=== PATIENT | male | born 1985 | race Caucasian/White ===

== ENCOUNTER 2016-10-09 09:02 | Emergency (ER) | payer MEDICAID ==
[2016-10-09] MEDS ORDERED: LIDOCAINE 2% MDV 20 ML VIAL As Ordered ONE (09:37)
--- NOTE | 2016-10-09 09:50 | REP ---
Right finger series: Five views. History: Trauma to the middle finger. Findings: Five views of the fingers of the right hand are somewhat less than optimally positioned. There is soft tissue irregularity at the proximal phalanx of the long finger. There may be some dressing artifact. This suggests a soft tissue injury. No definite opaque foreign body is seen. No fracture is noted. Signed by Jose Ariza MD 10/09/2016 01:41 P
--- NOTE | 2016-10-09 10:25 | EDDOCDS ---
Nurse's Notes [facility] Name: Tayo Montano Age: 30 yrs Sex: Male : 1985 Arrival Date: 10/09/2016 Time: 09:02 Bed I1 / M1 Private MD: Volodymyr Price WAT Diagnosis: Laceration without foreign body of right middle finger without damage to nail-flexor tendon exposed without visible injury Presentation: 10/09 09:09 Presenting complaint: EMS states: Pt tripped and fell with laceration to right 3rd kc3 finger. Bulky dressing intact placed aircraft captain. No head injury reported. Pt acting appropiately per family member. Adult Sepsis Screening: The patient does not have new or worsening altered mentation. Patient's respiratory rate is less than 22. Systolic blood pressure is greater than 100. Patient has a qSOFA score of 0- Negative Sepsis Screen. Suicide/Homicide risk assessment- Unable to assess, due to patient's chronic mental disability. Status: Patient is not a telephone service representative or dependent. Transition of care: patient was received from [facility]. 09:09 Acuity: TERI Level 4 kc3 09:09 Method Of Arrival: Ambulance kc3 Triage Assessment: 09:18 General: Appears in no apparent distress, comfortable, Behavior is pleasant. Pain: kc3 Unable to use pain scale. Does not appear to understand pain scale. HIV screening NA for this visit Offered previously. Neurological: Level of Consciousness is awake, alert. Respiratory: Respiratory effort is even, unlabored. Derm: Skin is intact, is healthy with good turgor, laceration to right middle finger approx. 1 inch. Musculoskeletal: Circulation, motion, and sensation intact. Historical: - Allergies: Benadryl; - Home Meds: 1. Abilify 5 mg Oral tab 1 tab once daily 2. Risperdal 2 mg Oral tab three times a day 3. loratadine 10 mg Oral TbDL 1 tab once daily 4. Depakote 500 mg Oral TbEC 1 tab 2 times per day 5. Debrox 6.5 % Otic drop as needed 6. Lexapro 20 mg Oral tab 1 tab once daily 7. clonazepam 0.5 mg Oral tab daily 8. Diflucan 200 mg Oral tab weekly for acute fungal inections PRN 9. multivitamin Oral tab 10. Colace 100 mg oral cap 1 cap 2 times per day - PMHx: Autism; Cerebral Palsy; CVA; Schizo-Affective Disorder; - PSHx: eye surgery; - Immunization history:: Last tetanus immunization: April 06, 2013. - Family history: Not pertinent. - Social history: Patient is speech impaired. Smoking status: Patient states was never smoker of tobacco. - : The pt / caregiver states he / she is not on anticoagulants. Home medication list is obtained from family members. - Exposure Risk Screening:: None identified. Screenin:22 Screening information is obtained from family members. Fall risk: At risk due to kc3 apparent cognitive impairment, The following interventions are performed due to a positive Fall Risk Screen: Fall Risk is added to Special Handling on the patient Summary Screen. A Fall Risk Bracelet was applied to the patient. Side Rails are placed in the up position. A Call Daley is given with instruction to call for help when getting out of bed. Fall Alert bracelet is placed on the patient. Assistance ADL's: Requires assistance with meal preparation, this assistance is provided by family members, bathing, assistance is provided by family members, dressing, assistance is provided by family members, toileting, assistance is provided by family members, ambulation, assistance is provided by family members, housework, assistance is provided by family members, medication administration, assistance is provided by family members. Abuse/DV Screen: The patient / caregiver reports he/she is: pt cannot be assessed for living situation at this time. Nutritional screening: On high fiber. home support is adequate. 10:17 Advance Directives: Currently, there is no health care proxy. [facility] Assessment: 09:22 General: See triage assessment. . kc3 10:17 Injury Description: Laceration sustained to palmar aspect of proximal phalanx of right kc3 middle finger is clean, 2.6 to 7.5 cm long, bleeding moderately, was sustained less than 30 minutes ago. is bleeding a small amount. 10:21 General: Appears suturing completed and tolerated well. bulky dressing in place. [facility] Instructions provided to care provider. 10:23 General: Appears Unable to obtain BP upon departure as resistance to attempt. [facility] Vital Signs: 09:20 BP 136 / 84; Pulse 93; Resp 20; Temp 98.5(TE); Pulse Ox 98% on R/A; nb2 10:24 Pulse 104; Resp 20; Temp 98.8(TE); Pulse Ox 100% on R/A; nb2 Vitals: 10:16 Log In Time N/A - ambulance arrival. kc3 ED Course: 09:03 Patient visited by Barbie Stephens, Retail Presentation Specialist. lbd 09:03 Volodymyr Price is Private Physician. lbd 09:03 Patient moved to Waiting lbd 09:05 Patient moved to I1 / M1 kc3 09:08 Manjeet Villanueva PA-C is PHCP. ar2 09:08 Haley Iraheta MD is Attending Physician. ar2 09:12 Triage Initiated kc3 09:17 Patient visited by Manjeet Villanueva PA-C. ar2 09:20 Patient visited by Nae Yuan. nb2 09:45 [facility] Payment Agreement was scanned into [employer] and attached to record. mm15 09:46 [facility] Payment Agreement was scanned into [employer] and attached to record. mm15 09:54 Fingers Returned. EDMS 10:15 Gabriel Young is Referral Physician. ar2 10:15 Volodymyr Price is Referral Physician. ar2 10:15 Assist provider with laceration repair using sutures, Laceration was 2.6 to 7.5 cm. kc3 with a simple repair. Performed by Manjeet Villanueva PA-C Set up tray. Dressed with 4X4s, Kerlix, Patient tolerated well. 10:17 The patient / caregiver is instructed regarding the plan of care and ED course. kc3 10:17 No IV's were initiated during this patient's visit. kc3 10:18 Patient visited by Leah Rea RN. kc3 10:24 Patient visited by Nae Yuan. nb2 Administered Medications: 10:08 Drug: Lidocaine 10 ml [lidocaine 20 mg/mL (2 %) injection solution (10 mL)] Route: jmk Infiltration; Order Results: Radiology Order: Fingers Test: Fingers REASON FOR EXAMINATION: middle;Trauma; Right finger series: Five views.; ; History: Trauma to the middle finger.; ; Findings: Five views of the fingers of the right hand are somewhat less than; optimally positioned. There is soft tissue irregularity at the proximal phalanx; of the long finger. There may be some dressing artifact. This suggests a soft; tissue injury. No definite opaque foreign body is seen. No fracture is noted.; ; ; ; ; Unreviewed; Outcome: 10:16 Discharge ordered by Provider. ar2 10:21 Discharge Assessment: Patient awake, alert and oriented x 3. No cognitive and/or jmk functional deficits noted. Patient verbalized understanding of disposition instructions. patient administered narcotics - no. The following High Risk Discharge criteria are identified: None. Condition: good. Discharge instructions given to patient, Instructed on discharge instructions, follow up and referral plans. medication usage, wound care, Demonstrated understanding of instructions, medications, Pt was receptive of discharge instructions/ teaching. No special radiology studies were completed. Property :Personal belongings accompany Pt. 10:24 Patient left the ED. levi Signatures: Dispatcher [employer] EDMS Barbie Stephens, Retail Presentation Specialist Unit lbd Forrest He,RN RN Manjeet Sanchez, PALashawn PA-Porter ar2 Luiz Hopson mm15 Leah Rea,RN RN kc3 Nae Yuan nb2 Corrections: (The following items were deleted from the chart) 09:23 09:18 Derm: Skin is intact, is healthy with good turgor, laceration to right middle kc3 finger kc3 10:16 09:09 Transition of care: patient was not received from another setting of care. kc3 kc3 MTDD
--- NOTE | 2016-10-09 10:25 | EDDOCDS ---
Physician Documentation [facility] Name: Tayo Montano Age: 30 yrs Sex: Male : 1985 Arrival Date: 10/09/2016 Time: 09:02 Bed I1 / M1 Private MD: Volodymyr Price WAT Disposition: 10/09/16 10:16 Discharged to Home/Self Care. Impression: Laceration without foreign body of right middle finger without damage to nail - flexor tendon exposed without visible injury. - Condition is Stable. - Discharge Instructions: Dressing Change, Sutured Wound Care. - Prescriptions for Keflex 500 mg Oral Capsule - take 1 capsule by ORAL route every 8 hours for 10 days; 30 capsule. - Medication Reconciliation, Local Pharmacy Hours form. - Follow up: Gabriel Young; When: Call to arrange an appointment; Reason: Recheck today's complaints. Follow up: Volodymyr Price; When: As needed; Reason: Continuance of care. - Problem is new. - Symptoms are unchanged. - Notes: keep wound clean, dry and covered. change dressing as needed. call to arrange follow up in next 24-48 hrs. Historical: - Allergies: Benadryl; - Home Meds: 1. Abilify 5 mg Oral tab 1 tab once daily 2. Risperdal 2 mg Oral tab three times a day 3. loratadine 10 mg Oral TbDL 1 tab once daily 4. Depakote 500 mg Oral TbEC 1 tab 2 times per day 5. Debrox 6.5 % Otic drop as needed 6. Lexapro 20 mg Oral tab 1 tab once daily 7. clonazepam 0.5 mg Oral tab daily 8. Diflucan 200 mg Oral tab weekly for acute fungal inections PRN 9. multivitamin Oral tab 10. Colace 100 mg oral cap 1 cap 2 times per day - PMHx: Autism; Cerebral Palsy; CVA; Schizo-Affective Disorder; - PSHx: eye surgery; - Immunization history:: Last tetanus immunization: April 06, 2013. - Family history: Not pertinent. - Social history: Patient is speech impaired. Smoking status: Patient states was never smoker of tobacco. - : The pt / caregiver states he / she is not on anticoagulants. Home medication list is obtained from family members. - Exposure Risk Screening:: None identified. Vital Signs: 10/09 09:20 BP 136 / 84; Pulse 93; Resp 20; Temp 98.5(TE); Pulse Ox 98% on R/A; nb2 10:24 Pulse 104; Resp 20; Temp 98.8(TE); Pulse Ox 100% on R/A; nb2 MDM: 09:18 Fingers Ordered. EDMS 09:22 Financial registration complete. mm15 09:31 Lidocaine 20 mg/mL (2 %) 10 ml Infiltration once; to bedside ordered. ar2 09:45 [facility] Payment Agreement was scanned into [employer] and attached to record. mm15 09:46 [facility] [place] into [employer] and attached to record. mm15 Administered Medications: 10:08 Drug: Lidocaine 10 ml [lidocaine 20 mg/mL (2 %) injection solution (10 mL)] Route: jmk Infiltration; Signatures: Dispatcher [employer] EDMI Forrest He,SOLO RN Manjeet Sanchez PA-C PALashawn ar2 Luiz Hopson mm15 Leah Rea,RN RN kc3 The chart was reviewed and I authenticate all verbal orders and agree with the evaluation and treatment provided.Attachments: 09:46 [facility] [place] Agreement mm15 MTDD
--- NOTE | 2016-10-11 11:25 | EDDOCDS ---
Physician Documentation [facility] Name: Tayo Montano Age: 30 yrs Sex: Male : 1985 Arrival Date: 10/09/2016 Time: 09:02 Bed I1 / M1 Private MD: Volodymyr Price WAT Disposition: 10/09/16 10:16 Discharged to Home/Self Care. Impression: Laceration without foreign body of right middle finger without damage to nail - flexor tendon exposed without visible injury. - Condition is Stable. - Discharge Instructions: Dressing Change, Sutured Wound Care. - Prescriptions for Keflex 500 mg Oral Capsule - take 1 capsule by ORAL route every 8 hours for 10 days; 30 capsule. - Medication Reconciliation, Local Pharmacy Hours form. - Follow up: Gabriel Young; When: Call to arrange an appointment; Reason: Recheck today's complaints. Follow up: Volodymyr Price; When: As needed; Reason: Continuance of care. - Problem is new. - Symptoms are unchanged. - Notes: keep wound clean, dry and covered. change dressing as needed. call to arrange follow up in next 24-48 hrs. Historical: - Allergies: Benadryl; - Home Meds: 1. Abilify 5 mg Oral tab 1 tab once daily 2. Risperdal 2 mg Oral tab three times a day 3. loratadine 10 mg Oral TbDL 1 tab once daily 4. Depakote 500 mg Oral TbEC 1 tab 2 times per day 5. Debrox 6.5 % Otic drop as needed 6. Lexapro 20 mg Oral tab 1 tab once daily 7. clonazepam 0.5 mg Oral tab daily 8. Diflucan 200 mg Oral tab weekly for acute fungal inections PRN 9. multivitamin Oral tab 10. Colace 100 mg oral cap 1 cap 2 times per day - PMHx: Autism; Cerebral Palsy; CVA; Schizo-Affective Disorder; - PSHx: eye surgery; - Immunization history:: Last tetanus immunization: April 06, 2013. - Family history: Not pertinent. - Social history: Patient is speech impaired. Smoking status: Patient states was never smoker of tobacco. - : The pt / caregiver states he / she is not on anticoagulants. Home medication list is obtained from family members. - Exposure Risk Screening:: None identified. Vital Signs: 10/09 09:20 BP 136 / 84; Pulse 93; Resp 20; Temp 98.5(TE); Pulse Ox 98% on R/A; nb2 10:24 Pulse 104; Resp 20; Temp 98.8(TE); Pulse Ox 100% on R/A; nb2 MDM: 09:18 Fingers Ordered. EDMS 09:22 Financial registration complete. mm15 09:31 Lidocaine 20 mg/mL (2 %) 10 ml Infiltration once; to bedside ordered. ar2 09:45 [facility] Payment Agreement was scanned into [employer] and attached to record. mm15 09:46 [facility] Payment Agreement was scanned into [employer] and attached to record. mm15 14:30 T-Sheet-- Draft Copy was scanned into [employer] and attached to record. gb 14:31 Radiology Report was scanned into [employer] and attached to record. gb Administered Medications: 10:08 Drug: Lidocaine 10 ml [lidocaine 20 mg/mL (2 %) injection solution (10 mL)] Route: jmk Infiltration; Signatures: Dispatcher [employer] EDUT Forrest He,RN RN Anne Baker, Reg Reg gb Manjeet Villanueva, PA-Porter PALsahawn ar2 Luiz Hopson mm15 Leah Rea,RN RN kc3 The chart was reviewed and I authenticate all verbal orders and agree with the evaluation and treatment provided.Attachments: 09:46 [facility] Payment Agreement mm15 14:30 T-Sheet-- Draft Copy gb Chart Complete MTDD
--- NOTE | 2016-10-11 11:25 | EDDOCDS ---
Physician Documentation [facility] Name: Tayo Montano Age: 30 yrs Sex: Male : 1985 Arrival Date: 10/09/2016 Time: 09:02 Bed I1 / M1 Private MD: Volodymyr Price WAT Disposition: 10/09/16 10:16 Discharged to Home/Self Care. Impression: Laceration without foreign body of right middle finger without damage to nail - flexor tendon exposed without visible injury. - Condition is Stable. - Discharge Instructions: Dressing Change, Sutured Wound Care. - Prescriptions for Keflex 500 mg Oral Capsule - take 1 capsule by ORAL route every 8 hours for 10 days; 30 capsule. - Medication Reconciliation, Local Pharmacy Hours form. - Follow up: Gabriel Young; When: Call to arrange an appointment; Reason: Recheck today's complaints. Follow up: Volodymyr Price; When: As needed; Reason: Continuance of care. - Problem is new. - Symptoms are unchanged. - Notes: keep wound clean, dry and covered. change dressing as needed. call to arrange follow up in next 24-48 hrs. Historical: - Allergies: Benadryl; - Home Meds: 1. Abilify 5 mg Oral tab 1 tab once daily 2. Risperdal 2 mg Oral tab three times a day 3. loratadine 10 mg Oral TbDL 1 tab once daily 4. Depakote 500 mg Oral TbEC 1 tab 2 times per day 5. Debrox 6.5 % Otic drop as needed 6. Lexapro 20 mg Oral tab 1 tab once daily 7. clonazepam 0.5 mg Oral tab daily 8. Diflucan 200 mg Oral tab weekly for acute fungal inections PRN 9. multivitamin Oral tab 10. Colace 100 mg oral cap 1 cap 2 times per day - PMHx: Autism; Cerebral Palsy; CVA; Schizo-Affective Disorder; - PSHx: eye surgery; - Immunization history:: Last tetanus immunization: April 06, 2013. - Family history: Not pertinent. - Social history: Patient is speech impaired. Smoking status: Patient states was never smoker of tobacco. - : The pt / caregiver states he / she is not on anticoagulants. Home medication list is obtained from family members. - Exposure Risk Screening:: None identified. Vital Signs: 10/09 09:20 BP 136 / 84; Pulse 93; Resp 20; Temp 98.5(TE); Pulse Ox 98% on R/A; nb2 10:24 Pulse 104; Resp 20; Temp 98.8(TE); Pulse Ox 100% on R/A; nb2 MDM: 09:18 Fingers Ordered. EDMS 09:22 Financial registration complete. mm15 09:31 Lidocaine 20 mg/mL (2 %) 10 ml Infiltration once; to bedside ordered. ar2 09:45 [facility] [place] Agreement was scanned into [employer] and attached to record. mm15 09:46 [facility] Payment Agreement was scanned into [email or web address] and attached to record. mm15 14:30 T-Sheet-- Draft Copy was scanned into [email or web address] and attached to record. gb 14:31 Radiology Report was scanned into [employer] and attached to record. gb Administered Medications: 10:08 Drug: Lidocaine 10 ml [lidocaine 20 mg/mL (2 %) injection solution (10 mL)] Route: jmk Infiltration; Signatures: Dispatcher [employer] EDCA Forrest He,RN RN Anne Baker, Reg Reg gb Manjeet Villanueva, PA-Porter PALashawn ar2 Luiz Hopson mm15 Leah Rea,RN RN kc3 The chart was reviewed and I authenticate all verbal orders and agree with the evaluation and treatment provided.Attachments: 09:46 [facility] [place] Agreement mm15 14:30 T-Sheet-- Draft Copy gb Chart Complete MTDD
--- NOTE | 2016-10-11 11:25 | EDDOCDS ---
Nurse's Notes [facility] Name: Tayo Montano Age: 30 yrs Sex: Male : 1985 Arrival Date: 10/09/2016 Time: 09:02 Bed I1 / M1 Private MD: Volodymyr Price WAT Diagnosis: Laceration without foreign body of right middle finger without damage to nail-flexor tendon exposed without visible injury Presentation: 10/09 09:09 Presenting complaint: EMS states: Pt tripped and fell with laceration to right 3rd kc3 finger. Bulky dressing intact placed senior ui ux developer. No head injury reported. Pt acting appropiately per family member. Adult Sepsis Screening: The patient does not have new or worsening altered mentation. Patient's respiratory rate is less than 22. Systolic blood pressure is greater than 100. Patient has a qSOFA score of 0- Negative Sepsis Screen. Suicide/Homicide risk assessment- Unable to assess, due to patient's chronic mental disability. Status: Patient is not a clinical services assistant or dependent. Transition of care: patient was received from [facility]. 09:09 Acuity: TERI Level 4 kc3 09:09 Method Of Arrival: Ambulance kc3 Triage Assessment: 09:18 General: Appears in no apparent distress, comfortable, Behavior is pleasant. Pain: kc3 Unable to use pain scale. Does not appear to understand pain scale. HIV screening NA for this visit Offered previously. Neurological: Level of Consciousness is awake, alert. Respiratory: Respiratory effort is even, unlabored. Derm: Skin is intact, is healthy with good turgor, laceration to right middle finger approx. 1 inch. Musculoskeletal: Circulation, motion, and sensation intact. Historical: - Allergies: Benadryl; - Home Meds: 1. Abilify 5 mg Oral tab 1 tab once daily 2. Risperdal 2 mg Oral tab three times a day 3. loratadine 10 mg Oral TbDL 1 tab once daily 4. Depakote 500 mg Oral TbEC 1 tab 2 times per day 5. Debrox 6.5 % Otic drop as needed 6. Lexapro 20 mg Oral tab 1 tab once daily 7. clonazepam 0.5 mg Oral tab daily 8. Diflucan 200 mg Oral tab weekly for acute fungal inections PRN 9. multivitamin Oral tab 10. Colace 100 mg oral cap 1 cap 2 times per day - PMHx: Autism; Cerebral Palsy; CVA; Schizo-Affective Disorder; - PSHx: eye surgery; - Immunization history:: Last tetanus immunization: April 06, 2013. - Family history: Not pertinent. - Social history: Patient is speech impaired. Smoking status: Patient states was never smoker of tobacco. - : The pt / caregiver states he / she is not on anticoagulants. Home medication list is obtained from family members. - Exposure Risk Screening:: None identified. Screenin:22 Screening information is obtained from family members. Fall risk: At risk due to kc3 apparent cognitive impairment, The following interventions are performed due to a positive Fall Risk Screen: Fall Risk is added to Special Handling on the patient Summary Screen. A Fall Risk Bracelet was applied to the patient. Side Rails are placed in the up position. A Call Daley is given with instruction to call for help when getting out of bed. Fall Alert bracelet is placed on the patient. Assistance ADL's: Requires assistance with meal preparation, this assistance is provided by family members, bathing, assistance is provided by family members, dressing, assistance is provided by family members, toileting, assistance is provided by family members, ambulation, assistance is provided by family members, housework, assistance is provided by family members, medication administration, assistance is provided by family members. Abuse/DV Screen: The patient / caregiver reports he/she is: pt cannot be assessed for living situation at this time. Nutritional screening: On high fiber. home support is adequate. 10:17 Advance Directives: Currently, there is no health care proxy. [facility] Assessment: 09:22 General: See triage assessment. . kc3 10:17 Injury Description: Laceration sustained to palmar aspect of proximal phalanx of right kc3 middle finger is clean, 2.6 to 7.5 cm long, bleeding moderately, was sustained less than 30 minutes ago. is bleeding a small amount. 10:21 General: Appears suturing completed and tolerated well. bulky dressing in place. [facility] Instructions provided to care provider. 10:23 General: Appears Unable to obtain BP upon departure as resistance to attempt. [facility] Vital Signs: 09:20 BP 136 / 84; Pulse 93; Resp 20; Temp 98.5(TE); Pulse Ox 98% on R/A; nb2 10:24 Pulse 104; Resp 20; Temp 98.8(TE); Pulse Ox 100% on R/A; nb2 Vitals: 10:16 Log In Time N/A - ambulance arrival. kc3 ED Course: 09:03 Patient visited by Barbie Stephens, Manager Green. lbd 09:03 Volodymyr Price is Private Physician. lbd 09:03 Patient moved to Waiting lbd 09:05 Patient moved to I1 / M1 kc3 09:08 Manjeet Villanueva PA-C is PHCP. ar2 09:08 Haley Iraheta MD is Attending Physician. ar2 09:12 Triage Initiated kc3 09:17 Patient visited by Manjeet Villanueva PA-C. ar2 09:20 Patient visited by Nae Yuan. nb2 09:45 [facility] Payment Agreement was scanned into [employer] and attached to record. mm15 09:46 [facility] Payment Agreement was scanned into [employer] and attached to record. mm15 09:54 Fingers Returned. EDMS 10:15 Gabriel Young is Referral Physician. ar2 10:15 Volodymyr Price is Referral Physician. ar2 10:15 Assist provider with laceration repair using sutures, Laceration was 2.6 to 7.5 cm. kc3 with a simple repair. Performed by Manjeet Villanueva PA-C Set up tray. Dressed with 4X4s, Kerlix, Patient tolerated well. 10:17 The patient / caregiver is instructed regarding the plan of care and ED course. kc3 10:17 No IV's were initiated during this patient's visit. kc3 10:18 Patient visited by Leah Rea RN. kc3 10:24 Patient visited by Nae Yuan. nb2 14:30 T-Sheet-- Draft Copy was scanned into [employer] and attached to record. gb 14:31 Radiology Report was scanned into [employer] and attached to record. gb Administered Medications: 10:08 Drug: Lidocaine 10 ml [lidocaine 20 mg/mL (2 %) injection solution (10 mL)] Route: jmk Infiltration; Order Results: Radiology Order: Fingers Test: Fingers REASON FOR EXAMINATION: middle;Trauma; Right finger series: Five views.; ; History: Trauma to the middle finger.; ; Findings: Five views of the fingers of the right hand are somewhat less than; optimally positioned. There is soft tissue irregularity at the proximal phalanx; of the long finger. There may be some dressing artifact. This suggests a soft; tissue injury. No definite opaque foreign body is seen. No fracture is noted.; ; ; Signed by; Jose Ariza MD 10/09/2016 01:41 P; Outcome: 10:16 Discharge ordered by Provider. ar2 10:21 Discharge Assessment: Patient awake, alert and oriented x 3. No cognitive and/or jmk functional deficits noted. Patient verbalized understanding of disposition instructions. patient administered narcotics - no. The following High Risk Discharge criteria are identified: None. Condition: good. Discharge instructions given to patient, Instructed on discharge instructions, follow up and referral plans. medication usage, wound care, Demonstrated understanding of instructions, medications, Pt was receptive of discharge instructions/ teaching. No special radiology studies were completed. Property :Personal belongings accompany Pt. 10:24 Patient left the ED. levi Signatures: Dispatcher [employer] EDMS Barbie Stephens, Manager Green Unit lbd Forrest He RN RN Anne Baker, Reg Reg gb Manjeet Villanueva, YAEL PALashawn ar2 Luiz Hopson mm15 Leah Rea,SOLO RN connor3 Nae Yuan nb2 Corrections: (The following items were deleted from the chart) 09:23 09:18 Derm: Skin is intact, is healthy with good turgor, laceration to right middle kc3 finger kc3 10:16 09:09 Transition of care: patient was not received from another setting of care. kc3 kc3 Chart Complete MTDD
== END 2016-10-09 10:24 | disposition home or self-care (01) ==
LOC: M ED 09:02
DX: S61.212A Laceration without foreign body of right middle finger without damage to nail, initial encounter (principal); W01.0XXA Fall on same level from slipping, tripping and stumbling without subsequent striking against object, initial encounter; Y92.019 Unspecified place in single-family (private) house as the place of occurrence of the external cause; Y93.01 Activity, walking, marching and hiking; Y99.8 Other external cause status; F84.0 Autistic disorder; G80.9 Cerebral palsy, unspecified; F25.9 Schizoaffective disorder, unspecified; Z86.73 Personal history of transient ischemic attack (TIA), and cerebral infarction without residual deficits; Z79.899 Other long term (current) drug therapy; Z88.8 Allergy status to other drugs, medicaments and biological substances

== ENCOUNTER 2016-10-15 10:35 | Emergency (ER) | payer MEDICAID ==
--- NOTE | 2016-10-15 12:21 | EDDOCDS ---
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 Per menagerie caretaker here he does not hs1 work regularly with patient and staff stated to him he recently had surgery on middle finger to right hand and now is swollen and needs evaluation. Adult Sepsis Screening: The patient does not have new or worsening altered mentation. Patient's respiratory rate is less than 22. Systolic blood pressure is greater than 100. Patient has a qSOFA score of 0- Negative Sepsis Screen. Suicide/Homicide risk assessment- the patient denies having any suicidal and/or homicidal ideations and does not present with any other emotional, behavioral or mental health complaints. Status: Patient is not a protective service specialist or dependent. Transition of care: patient was not received from another setting of care. 10:44 Acuity: TERI Level 4 hs1 10:44 Method Of Arrival: Walkin/Carried/Asstd hs1 Triage Assessment: 10:47 General: Appears in no apparent distress. Pain: Denies pain. Unable to use pain scale. hs1 Does not appear to understand pain scale. HIV screening NA for this visit Offered previously. Musculoskeletal: Parent/caregiver report the patient having swelling in finger. Historical: - Allergies: Benadryl; - Home Meds: 1. Abilify 5 mg Oral tab 1 tab once daily 2. clonazepam 0.5 mg Oral tab daily 3. Colace 100 mg oral cap 1 cap 2 times per day 4. Debrox 6.5 % Otic drop as needed 5. Depakote 500 mg Oral TbEC 1 tab 2 times per day 6. Diflucan 200 mg Oral tab weekly for acute fungal inections PRN 7. Lexapro 20 mg Oral tab 1 tab once daily 8. loratadine 10 mg Oral TbDL 1 tab once daily 9. multivitamin Oral tab 10. Risperdal 2 mg Oral tab three times a day - PMHx: Autism; Cerebral Palsy; CVA; Schizo-Affective Disorder; - PSHx: eye surgery; finger surgery?; - Social history: Smoking status: Patient states was never smoker of tobacco. Patient is visually impaired, Patient is speech impaired. - Family history: Not pertinent. - : The pt / caregiver states he / she is not on anticoagulants. Home medication list is obtained from the facility MAR. - Exposure Risk Screening:: None identified. Screenin:18 Screening information is obtained from the caregiver. Fall risk: At risk due to mlb1 apparent cognitive impairment, The following interventions are performed due to a positive Fall Risk Screen: Unable to Assess. Assistance ADL's: Requires assistance with meal preparation, this assistance is provided by residence staff, bathing, assistance is provided by residence staff, ambulation, assistance is provided by residence staff, housework, assistance is provided by residence staff, medication administration, assistance is provided by residence staff. Abuse/DV Screen: The patient / caregiver reports he/she is: not in a situation that causes fear, pain or injury. Nutritional screening: No deficits noted. Advance Directives: Currently, there is no health care proxy. home support is adequate. Assessment: 12:18 General: Appears in no apparent distress, comfortable, Behavior is appropriate for age, mlb1 cooperative. Pain: Unable to use pain scale. Does not appear to understand pain scale. Neurological: Level of Consciousness is awake, alert. Musculoskeletal: Circulation, motion, and sensation intact. Vital Signs: 10:38 BP 147 / 90; Pulse 109; Resp 20; Temp 97.6; Pulse Ox 99% ; jlf 12:16 BP 149 / 79; Pulse 100; Temp 98.0(T); Pulse Ox 97% ; jrd 12:16 PATIENT UNABLE TO GIVE PAIN SCALE RATING jrd Vitals: 10:38 Log In Time: October 15, 2016 at 10:38. [facility] ED Course: 10:37 Patient visited by Los Ramachandran PCA. jlf 10:37 Volodymyr Price is Private Physician. jlf 10:37 Patient moved to Waiting jlf 10:40 Patient visited by Los Ramachandran PCA. jlf 10:40 Patient moved to Pre RCE jlf 10:46 Triage Initiated hs1 11:30 Patient moved to PR1 / 25 jrd 11:46 Timothy Marrero PA-C is PHCP. cc10 11:46 Haley Iraheta MD is Attending Physician. cc10 11:52 Patient visited by Timothy Marrero PA-C. cc10 11:52 Patient visited by Timothy Marrero PA-C. cc10 12:09 Volodymyr Price is Referral Physician. cc10 12:19 No IV's were initiated during this patient's visit. No procedures done that require mlb1 assistance. 12:20 The patient / caregiver is instructed regarding the plan of care and ED course. mlb1 Order Results: There are currently no results for this order. Outcome: 12:09 Discharge ordered by Provider. cc10 12:19 Discharge Assessment: Patient awake, alert and oriented x 3. No cognitive and/or mlb1 functional deficits noted. Patient verbalized understanding of disposition instructions. patient administered narcotics - no. The following High Risk Discharge criteria are identified: None. Discharged to home ambulatory. Condition: good. Discharge instructions given to menagerie caretaker, Instructed on discharge instructions, follow up and referral plans. medication usage, Demonstrated understanding of instructions, medications, Pt was receptive of discharge instructions/ teaching. Prescriptions given X 1. No special radiology studies were completed. Property sent home with patient. 12:20 Patient left the ED. mlb1 Signatures: Volodymyr Gonzalez RN RN mlb1 Destinee Tripp, RN RN hs1 Los Ramachandran, SUPPLY ROOM CLERK SUPPLY ROOM CLERK jlf Timothy Marrero PA-C PA-C cc10 Angel Ramos, SUPPLY ROOM CLERK SUPPLY ROOM CLERK jrd MTDD
--- NOTE | 2016-10-15 12:21 | EDDOCDS ---
Physician Documentation [facility] Name: Tayo Montano Age: 30 yrs Sex: Male : 1985 Arrival Date: 10/15/2016 Time: 10:35 Bed PR Private MD: Volodymyr Price WAT Disposition: 10/15/16 12:09 Discharged to Home/Self Care. Impression: Cellulitis of right finger - 3rd. - Condition is Stable. - Discharge Instructions: Cellulitis. - Prescriptions for Augmentin 875- 125 mg Oral Tablet - take 1 tablet by ORAL route every 12 hours for 10 days; 20 tablet. - Medication Reconciliation form. - Follow up: Emergency Department; When: As needed; Reason: Worsening of conditions. Follow up: Volodymyr Price; When: As needed. - Problem is an ongoing problem. - Symptoms are unchanged. - Notes: Discontinue Keflex, Start Augmentin. Historical: - Allergies: Benadryl; - Home Meds: 1. Abilify 5 mg Oral tab 1 tab once daily 2. clonazepam 0.5 mg Oral tab daily 3. Colace 100 mg oral cap 1 cap 2 times per day 4. Debrox 6.5 % Otic drop as needed 5. Depakote 500 mg Oral TbEC 1 tab 2 times per day 6. Diflucan 200 mg Oral tab weekly for acute fungal inections PRN 7. Lexapro 20 mg Oral tab 1 tab once daily 8. loratadine 10 mg Oral TbDL 1 tab once daily 9. multivitamin Oral tab 10. Risperdal 2 mg Oral tab three times a day - PMHx: Autism; Cerebral Palsy; CVA; Schizo-Affective Disorder; - PSHx: eye surgery; finger surgery?; - Social history: Smoking status: Patient states was never smoker of tobacco. Patient is visually impaired, Patient is speech impaired. - Family history: Not pertinent. - : The pt / caregiver states he / she is not on anticoagulants. Home medication list is obtained from the facility NOV. - Exposure Risk Screening:: None identified. Vital Signs: 10/15 10:38 BP 147 / 90; Pulse 109; Resp 20; Temp 97.6; Pulse Ox 99% ; jlf 12:16 BP 149 / 79; Pulse 100; Temp 98.0(T); Pulse Ox 97% ; jrd 12:16 PATIENT UNABLE TO GIVE PAIN SCALE RATING jrd MDM: 12:13 Financial registration complete. lg Signatures: Shweta Turner, Reg Reg lg Volodymyr Gonzalez RN RN mlb1 Destinee Tripp RN RN hs1 Timothy Marrero, PADontaC PADontaC cc10 MTDD
--- NOTE | 2016-10-17 13:21 | EDDOCDS ---
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 Adult Sepsis Screening: The patient does not have new or worsening altered mentation. Patient's respiratory rate is less than 22. Systolic blood pressure is greater than 100. Patient has a qSOFA score of 0- Negative Sepsis Screen. Suicide/Homicide risk assessment- the patient denies having any suicidal and/or homicidal ideations and does not present with any other emotional, behavioral or mental health complaints. Status: Patient is not a financial services specialist or dependent. Transition of care: patient was not received from another setting of care. 10:44 Acuity: TERI Level 4 hs1 10:44 Method Of Arrival: Walkin/Carried/Asstd hs1 Triage Assessment: 10:47 General: Appears in no apparent distress. Pain: Denies pain. Unable to use pain scale. hs1 Does not appear to understand pain scale. HIV screening NA for this visit Offered previously. Musculoskeletal: Parent/caregiver report the patient having swelling in finger. Historical: - Allergies: Benadryl; - Home Meds: 1. Abilify 5 mg Oral tab 1 tab once daily 2. clonazepam 0.5 mg Oral tab daily 3. Colace 100 mg oral cap 1 cap 2 times per day 4. Debrox 6.5 % Otic drop as needed 5. Depakote 500 mg Oral TbEC 1 tab 2 times per day 6. Diflucan 200 mg Oral tab weekly for acute fungal inections PRN 7. Lexapro 20 mg Oral tab 1 tab once daily 8. loratadine 10 mg Oral TbDL 1 tab once daily 9. multivitamin Oral tab 10. Risperdal 2 mg Oral tab three times a day - PMHx: Autism; Cerebral Palsy; CVA; Schizo-Affective Disorder; - PSHx: eye surgery; finger surgery?; - Social history: Smoking status: Patient states was never smoker of tobacco. Patient is visually impaired, Patient is speech impaired. - Family history: Not pertinent. - : The pt / caregiver states he / she is not on anticoagulants. Home medication list is obtained from the facility MAR. - Exposure Risk Screening:: None identified. Screenin:18 Screening information is obtained from the caregiver. Fall risk: At risk due to mlb1 apparent cognitive impairment, The following interventions are performed due to a positive Fall Risk Screen: Unable to Assess. Assistance ADL's: Requires assistance with meal preparation, this assistance is provided by residence staff, bathing, assistance is provided by residence staff, ambulation, assistance is provided by residence staff, housework, assistance is provided by residence staff, medication administration, assistance is provided by residence staff. Abuse/DV Screen: The patient / caregiver reports he/she is: not in a situation that causes fear, pain or injury. Nutritional screening: No deficits noted. Advance Directives: Currently, there is no health care proxy. home support is adequate. Assessment: 12:18 General: Appears in no apparent distress, comfortable, Behavior is appropriate for age, mlb1 cooperative. Pain: Unable to use pain scale. Does not appear to understand pain scale. Neurological: Level of Consciousness is awake, alert. Musculoskeletal: Circulation, motion, and sensation intact. Vital Signs: 10:38 BP 147 / 90; Pulse 109; Resp 20; Temp 97.6; Pulse Ox 99% ; jlf 12:16 BP 149 / 79; Pulse 100; Temp 98.0(T); Pulse Ox 97% ; jrd 12:16 PATIENT UNABLE TO GIVE PAIN SCALE RATING jrd Vitals: 10:38 Log In Time: October 15, 2016 at 10:38. [facility] ED Course: 10:37 Patient visited by Los Ramachandran PCA. jlf 10:37 Volodymyr Price is Private Physician. jlf 10:37 Patient moved to Waiting jlf 10:40 Patient visited by Los Ramachandran PCA. jlf 10:40 Patient moved to Pre RCE jlf 10:46 Triage Initiated hs1 11:30 Patient moved to PR1 / 25 jrd 11:46 Timothy Marrero PA-C is PHCP. cc10 11:46 Haley Iraheta MD is Attending Physician. cc10 11:52 Patient visited by Timothy Marrero PA-C. cc10 11:52 Patient visited by Timothy Marrero PA-C. cc10 12:09 Volodymyr Price is Referral Physician. cc10 12:19 No IV's were initiated during this patient's visit. No procedures done that require mlb1 assistance. 12:20 The patient / caregiver is instructed regarding the plan of care and ED course. mlb1 14:08 [facility] [place] was scanned into [email or web address] and attached to record. lg 14:54 T-Sheet-- Draft Copy was scanned into [email or web address] and attached to record. gb Order Results: There are currently no results for this order. Outcome: 12:09 Discharge ordered by Provider. cc10 12:19 Discharge Assessment: Patient awake, alert and oriented x 3. No cognitive and/or mlb1 functional deficits noted. Patient verbalized understanding of disposition instructions. patient administered narcotics - no. The following High Risk Discharge criteria are identified: None. Discharged to home ambulatory. Condition: good. Discharge instructions given to prep cook, Instructed on discharge instructions, follow up and referral plans. medication usage, Demonstrated understanding of instructions, medications, Pt was receptive of discharge instructions/ teaching. Prescriptions given X 1. No special radiology studies were completed. Property sent home with patient. 12:20 Patient left the ED. mlb1 Signatures: Anne Izquierdo, Reg Reg gb Shweta Turner, Reg Reg lg Volodymyr Gonzalez RN RN mlb1 Destinee Tripp RN RN hs1 Los Ramachandran, LOCOMOTIVE PIPE FITTER LOCOMOTIVE PIPE FITTER jlf Timothy Marrero PA-C PA-C cc10 Angel Ramos, LOCOMOTIVE PIPE FITTER LOCOMOTIVE PIPE FITTER jrd Chart Complete MTDD
--- NOTE | 2016-10-17 13:21 | EDDOCDS ---
Physician Documentation [facility] Name: Tayo Montano Age: 30 yrs Sex: Male : 1985 Arrival Date: 10/15/2016 Time: 10:35 Bed PR Private MD: Volodymyr Price WAT Disposition: 10/15/16 12:09 Discharged to Home/Self Care. Impression: Cellulitis of right finger - 3rd. - Condition is Stable. - Discharge Instructions: Cellulitis. - Prescriptions for Augmentin 875- 125 mg Oral Tablet - take 1 tablet by ORAL route every 12 hours for 10 days; 20 tablet. - Medication Reconciliation form. - Follow up: Emergency Department; When: As needed; Reason: Worsening of conditions. Follow up: Volodymyr Price; When: As needed. - Problem is an ongoing problem. - Symptoms are unchanged. - Notes: Discontinue Keflex, Start Augmentin. Historical: - Allergies: Benadryl; - Home Meds: 1. Abilify 5 mg Oral tab 1 tab once daily 2. clonazepam 0.5 mg Oral tab daily 3. Colace 100 mg oral cap 1 cap 2 times per day 4. Debrox 6.5 % Otic drop as needed 5. Depakote 500 mg Oral TbEC 1 tab 2 times per day 6. Diflucan 200 mg Oral tab weekly for acute fungal inections PRN 7. Lexapro 20 mg Oral tab 1 tab once daily 8. loratadine 10 mg Oral TbDL 1 tab once daily 9. multivitamin Oral tab 10. Risperdal 2 mg Oral tab three times a day - PMHx: Autism; Cerebral Palsy; CVA; Schizo-Affective Disorder; - PSHx: eye surgery; finger surgery?; - Social history: Smoking status: Patient states was never smoker of tobacco. Patient is visually impaired, Patient is speech impaired. - Family history: Not pertinent. - : The pt / caregiver states he / she is not on anticoagulants. Home medication list is obtained from the facility NOV. - Exposure Risk Screening:: None identified. Vital Signs: 10/15 10:38 BP 147 / 90; Pulse 109; Resp 20; Temp 97.6; Pulse Ox 99% ; jlf 12:16 BP 149 / 79; Pulse 100; Temp 98.0(T); Pulse Ox 97% ; jrd 12:16 PATIENT UNABLE TO GIVE PAIN SCALE RATING jrd MDM: 12:13 Financial registration complete. lg 14:08 [facility] Payment Agreement was scanned into [employer] and attached to record. lg 14:54 T-Sheet-- Draft Copy was scanned into [employer] and attached to record. gb Signatures: Anne Izquierdo, Reg Reg gb JohnnyShweta, Reg Reg lg Volodyymr Gonzalez RN RN mlb1 Destinee Tripp RN RN hs1 Timothy Marrero, PA-C PA-C cc10 The chart was reviewed and I authenticate all verbal orders and agree with the evaluation and treatment provided.Attachments: 14:08 [facility] Payment Agreement lg 14:54 T-Sheet-- Draft Copy gb Chart Complete MTDD
--- NOTE | 2016-10-17 13:21 | EDDOCDS ---
Physician Documentation [facility] Name: Tayo Montano Age: 30 yrs Sex: Male : 1985 Arrival Date: 10/15/2016 Time: 10:35 Bed PR Private MD: Volodymyr Price WAT Disposition: 10/15/16 12:09 Discharged to Home/Self Care. Impression: Cellulitis of right finger - 3rd. - Condition is Stable. - Discharge Instructions: Cellulitis. - Prescriptions for Augmentin 875- 125 mg Oral Tablet - take 1 tablet by ORAL route every 12 hours for 10 days; 20 tablet. - Medication Reconciliation form. - Follow up: Emergency Department; When: As needed; Reason: Worsening of conditions. Follow up: Volodymyr Price; When: As needed. - Problem is an ongoing problem. - Symptoms are unchanged. - Notes: Discontinue Keflex, Start Augmentin. Historical: - Allergies: Benadryl; - Home Meds: 1. Abilify 5 mg Oral tab 1 tab once daily 2. clonazepam 0.5 mg Oral tab daily 3. Colace 100 mg oral cap 1 cap 2 times per day 4. Debrox 6.5 % Otic drop as needed 5. Depakote 500 mg Oral TbEC 1 tab 2 times per day 6. Diflucan 200 mg Oral tab weekly for acute fungal inections PRN 7. Lexapro 20 mg Oral tab 1 tab once daily 8. loratadine 10 mg Oral TbDL 1 tab once daily 9. multivitamin Oral tab 10. Risperdal 2 mg Oral tab three times a day - PMHx: Autism; Cerebral Palsy; CVA; Schizo-Affective Disorder; - PSHx: eye surgery; finger surgery?; - Social history: Smoking status: Patient states was never smoker of tobacco. Patient is visually impaired, Patient is speech impaired. - Family history: Not pertinent. - : The pt / caregiver states he / she is not on anticoagulants. Home medication list is obtained from the facility NOV. - Exposure Risk Screening:: None identified. Vital Signs: 10/15 10:38 BP 147 / 90; Pulse 109; Resp 20; Temp 97.6; Pulse Ox 99% ; jlf 12:16 BP 149 / 79; Pulse 100; Temp 98.0(T); Pulse Ox 97% ; jrd 12:16 PATIENT UNABLE TO GIVE PAIN SCALE RATING jrd MDM: 12:13 Financial registration complete. lg 14:08 [facility] Payment Agreement was scanned into [employer] and attached to record. lg 14:54 T-Sheet-- Draft Copy was scanned into [employer] and attached to record. gb Signatures: Anne Izquierdo, Reg Reg gb JohnnyShweta, Reg Reg lg Volodymyr Gonzalez RN RN mlb1 Destinee Tripp RN RN hs1 Timothy Marrero, PA-C PA-C [id number] The chart was reviewed and I authenticate all verbal orders and agree with the evaluation and treatment provided.Attachments: 14:08 [facility] Payment Agreement lg 14:54 T-Sheet-- Draft Copy gb Chart Complete MTDD
== END 2016-10-15 12:20 | disposition home or self-care (01) ==
LOC: M ED 10:35
DX: L03.011 Cellulitis of right finger (principal); F84.0 Autistic disorder; G80.9 Cerebral palsy, unspecified; F25.9 Schizoaffective disorder, unspecified; Z86.73 Personal history of transient ischemic attack (TIA), and cerebral infarction without residual deficits; Z79.899 Other long term (current) drug therapy; Z88.8 Allergy status to other drugs, medicaments and biological substances

== ENCOUNTER → 2016-10-18 | Outpatient (CLI) | payer MEDICAID ==
[2016-10-18 18:47] LABS: ALBUMIN 4.1 GM/DL (3.2-5.2); ALBUMIN/GLOBULIN RATIO 1.24 (1.00-1.93); BILIRUBIN,DIRECT 0.2 MG/DL (0.0-0.2); BILIRUBIN,TOTAL 0.5 MG/DL (0.2-1.0); TOTAL PROTEIN 7.4 GM/DL (6.4-8.2)
[2016-10-18 19:04] LABS: BASO % 0.2 % (0.0-1.0); EOS # 0.1 K/mm3 (0.0-0.50); EOS % 1.4 % (0.0-3.0); LARGE UNSTAINED CELL # 0.1 K/mm3 (0.0-0.4); LARGE UNSTAINED CELL % 1.4 % (0.0-4.0); LYMPH # 0.7 K/mm3 (1.5-6.5); LYMPH % 14.9 % (24.0-44.0); MEAN CORPUSCULAR VOLUME 94.2 fl (80.0-96.0); MONO # 0.5 K/mm3 (0.0-0.8); MONO % 9.3 % (0.0-5.0); NEUTROPHILS # 3.5 K/mm3 (1.8-7.7); NEUTROPHILS % 72.8 % (36.0-66.0); PLATELET COUNT, AUTOMATED 202 k/mm3 (150-450); RED CELL DISTRIBUTION WIDTH 11.8 % (11.5-14.5); WHITE BLOOD COUNT 4.8 K/mm3 (4.0-10.0)
== END ==
LOC: M LRY 09:44
PROVIDERS: ATTEND Anesthesiology Pain Medicine
DX: Z79.899 Other long term (current) drug therapy (principal)

== ENCOUNTER → 2016-10-18 | Outpatient (CLI) | payer MEDICAID ==
[2016-10-18 18:47] LABS: MEAN CORPUSCULAR HEMOGLOBIN 31.6 pg (27.0-33.0); MEAN CORPUSCULAR HGB CONC 33.6 g/dl (32.0-36.5); RED CELL DISTRIBUTION WIDTH 11.8 % (11.5-14.5)
[2016-10-18 18:48] LABS: ALBUMIN 4.1 GM/DL (3.2-5.2); ALBUMIN/GLOBULIN RATIO 1.28 (1.00-1.93); ALKALINE PHOSPHATASE 100 U/L (45-117); ALT/SGPT 31 U/L (12-78); ANION GAP 6 MEQ/L (8-16); AST/SGOT 23 U/L (15-37); BILIRUBIN,TOTAL 0.6 MG/DL (0.2-1.0); BLOOD UREA NITROGEN 20 MG/DL (7-18); CARBON DIOXIDE LEVEL 32 MEQ/L (21-32); CHLORIDE LEVEL 105 MEQ/L (98-107); CREATININE FOR GFR 0.61 MG/DL (0.70-1.30); GLOMERULAR FILTRATION RATE > 60.0 (>60); GLUCOSE, FASTING 85 MG/DL (70-105); POTASSIUM SERUM 4.3 MEQ/L (3.5-5.1); SODIUM LEVEL 143 MEQ/L (136-145); TOTAL PROTEIN 7.3 GM/DL (6.4-8.2)
== END ==
LOC: M LRY 09:38
PROVIDERS: ATTEND Physician Assistant
DX: H60.60 Unspecified chronic otitis externa, unspecified ear (principal); F33.1 Major depressive disorder, recurrent, moderate; K59.00 Constipation, unspecified

== ENCOUNTER 2016-12-02 06:33 | Emergency (ER) | payer MEDICAID ==
--- NOTE | 2016-12-02 08:09 | ED PDOC ---
Provider Note SPOKE WITH [facility] STAFF MEMBER WHILE EXAMINING PT. ADVISED THERE IS A LIST OF MEDICATIONS THAT ARE CONSIDERED PRN MEDS FOR HOSPITAL VISITS THAT HELP TO KEEP THE PT CALM. ADVISED THIS WOULD BE NEEDED IN ORDER TO ADEQUATELY SUTURE PT WITHOUT INJURY TO THE PT OR STAFF. ADVISED WILL WAIT UNTIL THIS LIST IS RECEIVED , THEN MEDICATE THIS PT, REASSESS 15-20 MINUTES AFTER ADMINISTRATION OF MEDICATION AND THEN WILL HAVE SOME HELPING HANDS TO HOLD THE PT SO SUTURES CAN BE PLACED SAFELY. STAFF MEMBER IN AGREEMENT WITH THIS PLAN AND STATES WILL LET US KNOW WHEN THE MEDICATION LIST HAS ARRIVED WITH OTHER STAFF FROM [facility]. RYLEY SOLARES PA-C Dec 02, 2016 08:09
[2016-12-02] MEDS ORDERED: LIDOCAINE W/EPINEPHRINE 1% 20ML VIAL SC ONE (09:00)
[2016-12-02 09:24] VITALS: BP 138/72
[2016-12-02] MEDS ORDERED: ZOLO50TA PO (09:41)
[2016-12-02] MEDS ORDERED: MULT1TAB10 PO (09:41)
[2016-12-02] MEDS ORDERED: HYDR-4274 PO (09:41)
[2016-12-02] MEDS ORDERED: TRIA1CR TOP (09:41)
[2016-12-02] MEDS ORDERED: ARTI99.0 OP (09:41)
[2016-12-02] MEDS ORDERED: [UNRECOGNIZED DRUG - CODE] IM (09:41)
[2016-12-02] MEDS ORDERED: ZYPR7.5T10 PO (09:41)
[2016-12-02] MEDS ORDERED: MELA0.02 PO (09:41)
[2016-12-02] MEDS ORDERED: VALI5TAB PO (09:41)
[2016-12-02] MEDS ORDERED: PREDOPD OD (09:41)
[2016-12-02] MEDS ORDERED: CLAR1TAB2 PO (09:41)
[2016-12-02] MEDS ORDERED: COLA100C PO (09:41)
[2016-12-02] MEDS ORDERED: LAMO10TA PO (09:41)
[2016-12-02] MEDS ORDERED: TETA1INJ5 IM (09:41)
[2016-12-02] MEDS ORDERED: OMEP10CASR PO (09:41)
[2016-12-02] MEDS ORDERED: KEPP1TAB2 PO (09:41)
[2016-12-02] MEDS ORDERED: MILKSUS PO (09:41)
[2016-12-02] MEDS ORDERED: ATIV1TAB7 PO (09:41)
[2016-12-02] MEDS ORDERED: ATRO1OPD OU (09:41)
[2016-12-02] MEDS ORDERED: DIAS5GEL PR (09:41)
[2016-12-02] MEDS ORDERED: SENN8.6C PO (09:41)
[2016-12-02] MEDS ORDERED: SALI0.653 (09:41)
== END 2016-12-02 10:02 | disposition home or self-care (01) ==
LOC: M ED 07:34
DX: S01.81XA Laceration without foreign body of other part of head, initial encounter (principal); W19.XXXA Unspecified fall, initial encounter; Y92.198 Other place in other specified residential institution as the place of occurrence of the external cause; Y93.89 Activity, other specified; Y99.8 Other external cause status; F79 Unspecified intellectual disabilities; Z79.899 Other long term (current) drug therapy; Z88.8 Allergy status to other drugs, medicaments and biological substances
CPT/HCPCS: 12013; 96372; 99281; J3360

== ENCOUNTER 2016-12-07 10:40 | Emergency (ER) | payer MEDICAID ==
[~2016-12-07] VITALS: Ht 172.7 cm; Wt 54.4 kg
[~2016-12-07 10:40] MED LIST: ARTI99.0 OP; ATIV1TAB7 PO; ATRO1OPD OU; CLAR1TAB2 PO; COLA100C PO; DIAS5GEL PR; HYDR-4274 PO; KEPP1TAB2 PO; LAMO10TA PO; MELA0.02 PO; MILKSUS PO; MULT1TAB10 PO; OMEP10CASR PO; PREDOPD OD; SALI0.653; SENN8.6C PO; TETA1INJ5 IM; TRIA1CR TOP; VALI5TAB PO; ZOLO50TA PO; ZYPR7.5T10 PO; [UNRECOGNIZED DRUG - CODE] IM
[2016-12-07 10:42] VITALS: BP 132/83
== END 2016-12-07 13:06 | disposition home or self-care (01) ==
LOC: M ED 11:52
DX: T81.30XA Disruption of wound, unspecified, initial encounter (principal); W19.XXXA Unspecified fall, initial encounter; Y92.198 Other place in other specified residential institution as the place of occurrence of the external cause; Y93.89 Activity, other specified; Y99.8 Other external cause status; R56.9 Unspecified convulsions; F79 Unspecified intellectual disabilities; Z88.8 Allergy status to other drugs, medicaments and biological substances; Z79.899 Other long term (current) drug therapy

== ENCOUNTER 2016-12-11 11:36 | Emergency (ER) | payer MEDICAID ==
[~2016-12-11] VITALS: Ht 142.2 cm; Wt 54.4 kg
[2016-12-11] MEDS ORDERED: DIFL200T PO (11:57)
[2016-12-11] MEDS ORDERED: RISP2TAB30 PO (11:57)
[2016-12-11] MEDS ORDERED: CLON0.5T PO (11:57)
[2016-12-11] MEDS ORDERED: DEBR6.5S4 (11:57)
[2016-12-11] MEDS ORDERED: LEXA1TAB2 PO (11:57)
[2016-12-11] MEDS ORDERED: DEPA125C PO (11:57)
[2016-12-11] MEDS ORDERED: ABIL5TAB5 PO (11:57)
--- NOTE | 2016-12-11 14:32 | ED PDOC ---
Post-Departure Follow-Up with assitance of staff patient supported on bed. 2 sutures removed without complication. bandaid applied. [facility] [[email or web address]] staff report that patient initially had 4 sutures placed. had a subsequent fall resulting in disruption of 2 sutures. BRANDI AHUMADA PA-C. Dec 11, 2016 14:32
[2016-12-11 15:00] LABS: BASO % 0.4 % (0.0-1.0); EOS # 0.1 K/mm3 (0.0-0.50); EOS % 1.6 % (0.0-3.0); LARGE UNSTAINED CELL # 0.1 K/mm3 (0.0-0.4); LARGE UNSTAINED CELL % 1.6 % (0.0-4.0); LYMPH # 1.6 K/mm3 (1.5-6.5); LYMPH % 16.6 % (24.0-44.0); MEAN CORPUSCULAR HEMOGLOBIN 31.5 pg (27.0-33.0); MEAN CORPUSCULAR HGB CONC 34.2 g/dl (32.0-36.5); MEAN CORPUSCULAR VOLUME 92.1 fl (80.0-96.0); MONO # 0.8 K/mm3 (0.0-0.8); MONO % 8.8 % (0.0-5.0); NEUTROPHILS # 6.1 K/mm3 (1.8-7.7); PLATELET COUNT, AUTOMATED 203 k/mm3 (150-450); RED CELL DISTRIBUTION WIDTH 11.8 % (11.5-14.5); WHITE BLOOD COUNT 8.6 K/mm3 (4.0-10.0)
[2016-12-11 15:38] LABS: ALBUMIN 3.8 GM/DL (3.2-5.2); ALBUMIN/GLOBULIN RATIO 1.19 (1.00-1.93); ALKALINE PHOSPHATASE 94 U/L (45-117); ALT/SGPT 30 U/L (12-78); ANION GAP 9 MEQ/L (8-16); AST/SGOT 29 U/L (15-37); BILIRUBIN,TOTAL 0.5 MG/DL (0.2-1.0); BLOOD UREA NITROGEN 18 MG/DL (7-18); CALCIUM LEVEL 8.8 MG/DL (8.5-10.1); CARBON DIOXIDE LEVEL 30 MEQ/L (21-32); CHLORIDE LEVEL 101 MEQ/L (98-107); CREATININE FOR GFR 0.55 MG/DL (0.70-1.30); GLOMERULAR FILTRATION RATE > 60.0 (>60); GLUCOSE, FASTING 79 MG/DL (70-105); POTASSIUM SERUM 4.1 MEQ/L (3.5-5.1); SODIUM LEVEL 140 MEQ/L (136-145)
[2016-12-11] MEDS ORDERED: KEFL500C7 PO (15:52)
[2016-12-11 15:56] VITALS: BP 135/70
== END 2016-12-11 16:00 | disposition home or self-care (01) ==
LOC: M ED 13:57
DX: L08.9 Local infection of the skin and subcutaneous tissue, unspecified (principal)

== ENCOUNTER 2017-02-23 10:49 | Emergency (ER) | payer MEDICAID ==
[~2017-02-23] VITALS: Ht 142.2 cm; Wt 54.4 kg
[~2017-02-23 10:49] MED LIST changes: +ABIL5TAB5 PO; +CLON0.5T PO; -COLA100C PO; +COLA100C3 PO; +DEBR6.5S4; +DEPA125C PO; +DIFL200T PO; +KEFL500C7 PO; +LEXA1TAB2 PO; +RISP2TAB30 PO
[2017-02-23] MEDS ORDERED: DEBR6.5S4 (11:16)
[2017-02-23] MEDS ORDERED: LIDOCAINE W/EPINEPHRINE 1% 20ML VIAL As Ordered ONE (11:49)
[2017-02-23 12:08] VITALS: BP 141/81
[2017-02-23] MEDS ORDERED: TETANUS/DIPHTHERIA TOX ADSORB ADULT 0.5ML SYR/VIAL (90714) IM ONE (12:15)
== END 2017-02-23 12:18 | disposition home or self-care (01) ==
LOC: M ED 12:06
DX: S01.81XA Laceration without foreign body of other part of head, initial encounter (principal); W19.XXXA Unspecified fall, initial encounter; Y92.89 Other specified places as the place of occurrence of the external cause; Y93.9 Activity, unspecified; Y99.9 Unspecified external cause status; R56.9 Unspecified convulsions; Z79.899 Other long term (current) drug therapy; Z88.8 Allergy status to other drugs, medicaments and biological substances

== ENCOUNTER → 2017-04-03 | Outpatient (CLI) | payer MEDICAID ==
[~2017-04-03] MED LIST changes: +ABIL1TAB11 PO; -ABIL5TAB5 PO; +AUGM875T28 PO; -COLA100C3 PO; +COLA100C5 PO; -HYDR-4274 PO; +HYDR50TA70 PO; +KEFL500C17 PO; -KEFL500C7 PO; -MELA0.02 PO; +MELA3TAB49 PO; -RISP2TAB30 PO; +RISP2TAB32 PO; +SALI0.6523; -SALI0.653; +TRIP1OIN4 TOP; +ZYPR1TAB2 PO; -ZYPR7.5T10 PO
[2017-04-03 13:46] LABS: ALBUMIN/GLOBULIN RATIO 1.38 (1.00-1.93); BILIRUBIN,DIRECT 0.2 MG/DL (0.0-0.2); BILIRUBIN,TOTAL 0.7 MG/DL (0.2-1.0); TOTAL PROTEIN 6.9 GM/DL (6.4-8.2)
[2017-04-03 18:29] LABS: BASO % 0.6 % (0.0-1.0); EOS # 0.1 K/mm3 (0.0-0.50); EOS % 1.9 % (0.0-3.0); LARGE UNSTAINED CELL # 0.1 K/mm3 (0.0-0.4); LARGE UNSTAINED CELL % 1.6 % (0.0-4.0); LYMPH % 16.3 % (24.0-44.0); MEAN CORPUSCULAR HEMOGLOBIN 31.6 pg (27.0-33.0); MEAN CORPUSCULAR HGB CONC 33.6 g/dl (32.0-36.5); MONO # 0.6 K/mm3 (0.0-0.8); MONO % 9.4 % (0.0-5.0); NEUTROPHILS # 4.1 K/mm3 (1.8-7.7); NEUTROPHILS % 70.2 % (36.0-66.0); PLATELET COUNT, AUTOMATED 190 k/mm3 (150-450); RED CELL DISTRIBUTION WIDTH 12.2 % (11.5-14.5); WHITE BLOOD COUNT 5.8 K/mm3 (4.0-10.0)
== END ==
LOC: M WUC 11:07
PROVIDERS: ATTEND Anesthesiology Pain Medicine
DX: Z79.899 Other long term (current) drug therapy (principal)

== ENCOUNTER 2017-06-03 17:50 | Emergency (ER) | payer MEDICAID ==
[~2017-06-03 17:50] MED LIST changes: -AUGM875T28 PO; -TRIP1OIN4 TOP
[2017-06-03] MEDS ORDERED: AMPICILLIN SOD/SULBACTAM SOD 3 GM in D5W MINI-BAG PLUS 100 ML IV ONE (18:30)
[2017-06-03 19:23] LABS: BASO % 0.4 % (0.0-1.0); EOS # 0.1 K/mm3 (0.0-0.50); EOS % 1.1 % (0.0-3.0); LARGE UNSTAINED CELL # 0.1 K/mm3 (0.0-0.4); LARGE UNSTAINED CELL % 1.5 % (0.0-4.0); LYMPH # 1.6 K/mm3 (1.5-6.5); LYMPH % 24.2 % (24.0-44.0); MEAN CORPUSCULAR HEMOGLOBIN 31.5 pg (27.0-33.0); MEAN CORPUSCULAR HGB CONC 33.6 g/dl (32.0-36.5); MEAN CORPUSCULAR VOLUME 93.8 fl (80.0-96.0); MONO # 0.6 K/mm3 (0.0-0.8); MONO % 8.7 % (0.0-5.0); NEUTROPHILS # 4.1 K/mm3 (1.8-7.7); NEUTROPHILS % 64.1 % (36.0-66.0); PLATELET COUNT, AUTOMATED 193 k/mm3 (150-450); RED CELL DISTRIBUTION WIDTH 12.1 % (11.5-14.5); WHITE BLOOD COUNT 6.4 K/mm3 (4.0-10.0)
[2017-06-03 19:30] LABS: ANION GAP 7 MEQ/L (8-16); BLOOD UREA NITROGEN 15 MG/DL (7-18); CALCIUM LEVEL 8.7 MG/DL (8.5-10.1); CARBON DIOXIDE LEVEL 31 MEQ/L (21-32); CHLORIDE LEVEL 107 MEQ/L (98-107); GLOMERULAR FILTRATION RATE > 60.0 (>60); GLUCOSE, FASTING 104 MG/DL (70-105); SODIUM LEVEL 145 MEQ/L (136-145)
[2017-06-03] MEDS ORDERED: LORazepam 2 MG/ML VIAL (J2060) IV STA (19:51)
[2017-06-03] MEDS ORDERED: ISOVUE-370 76% 100ML VIAL (Q9967) As Ordered ONE (20:15)
--- NOTE | 2017-06-03 20:54 | REP ---
Clinical: Evaluate for dental abscess. Technique: Axial contrast enhanced images from the mid skull through the thoracic inlet with coronal and sagittal re-formations using 100 ml Isovue 370 intravenous contrast material Findings: Mild hyperemia and soft tissue swelling along the right side of the mandible cannot be excluded without evidence for underlying fluid collection or abscess. The surrounding soft tissues of the neck are otherwise symmetric and without further obvious or significant inflammatory changes. The nasopharyngeal, oral pharyngeal and hypopharyngeal soft tissues are symmetric. The parapharyngeal fat pads are normal and symmetric as well as the associated vasculature. There is no evidence for adenopathy. The airway is patent and midline. The parapharyngeal and retropharyngeal soft tissues are unremarkable. The osseous structures are intact and normal without evidence for periosteal reaction, fracture or obvious pathology. The sinuses and mastoid air cells are well-aerated and clear. Impression: 1. Mild hyperemia and soft tissue swelling along the right side of the mandible cannot be excluded without underlying fluid collection or abscess. 2. Contrast enhanced CT of the neck is otherwise unremarkable. Signed by Neo Justice MD 06/03/2017 08:46 P
[2017-06-03] MEDS ORDERED: AUGM875T28 PO (21:28)
[2017-06-03 21:50] VITALS: BP 135/89
== END 2017-06-03 21:51 | disposition home or self-care (01) ==
LOC: M ED 17:50
DX: K02.9 Dental caries, unspecified (principal); K05.11 Chronic gingivitis, non-plaque induced; Z79.899 Other long term (current) drug therapy; Z88.8 Allergy status to other drugs, medicaments and biological substances
CPT/HCPCS: 70491; 80048; 85025; 86140; 87040; 96374; 99283; Q9967

== ENCOUNTER 2017-06-20 17:38 | Emergency (ER) | payer MEDICAID ==
[~2017-06-20] VITALS: Ht 142.2 cm; Wt 52.3 kg
[~2017-06-20 17:38] MED LIST changes: +AUGM875T28 PO
[2017-06-20 17:40] VITALS: BP 169/98
[2017-06-20] MEDS ORDERED: TRIP1OIN4 TOP (18:29)
== END 2017-06-20 18:45 | disposition home or self-care (01) ==
LOC: M ED 17:38
DX: S01.81XA Laceration without foreign body of other part of head, initial encounter (principal); W19.XXXA Unspecified fall, initial encounter; Y92.099 Unspecified place in other non-institutional residence as the place of occurrence of the external cause; Y93.89 Activity, other specified; Y99.9 Unspecified external cause status; R56.9 Unspecified convulsions; Z86.73 Personal history of transient ischemic attack (TIA), and cerebral infarction without residual deficits; F79 Unspecified intellectual disabilities; Z79.899 Other long term (current) drug therapy; Z88.8 Allergy status to other drugs, medicaments and biological substances

== ENCOUNTER → 2017-08-29 | Outpatient (CLI) | payer MEDICAID ==
[~2017-08-29] MED LIST changes: +TRIP1OIN4 TOP
[2017-08-29 17:57] LABS: ALBUMIN 3.7 GM/DL (3.2-5.2); BILIRUBIN,DIRECT 0.2 MG/DL (0.0-0.2); BILIRUBIN,TOTAL 0.5 MG/DL (0.2-1.0); TOTAL PROTEIN 7.4 GM/DL (6.4-8.2)
[2017-08-29 18:17] LABS: BASO # 0.1 10^3/uL (0.0-0.2); BASO % 0.8 % (0.0-1.0); EOS % 0.3 % (0.0-3.0); IMMATURE GRANULOCYTE % 0.7 % (0-0); LYMPH # 0.9 10^3/uL (1.5-6.5); LYMPH % 15.4 % (24.0-44.0); MEAN CORPUSCULAR HEMOGLOBIN 30.1 pg (27.0-33.0); MEAN CORPUSCULAR HGB CONC 31.5 g/dl (32.0-36.5); MEAN CORPUSCULAR VOLUME 95.6 fl (80.0-96.0); MONO # 0.5 10^3/uL (0.0-0.8); MONO % 9.1 % (0.0-5.0); NEUTROPHILS # 4.4 10^3/uL (1.8-7.7); NEUTROPHILS % 73.7 % (36.0-66.0); PLATELET COUNT, AUTOMATED 259 10^3/uL (150-450); RED CELL DISTRIBUTION WIDTH 11.8 % (11.5-14.5)
== END ==
LOC: M WUC 08:57
PROVIDERS: ATTEND Anesthesiology Pain Medicine
DX: Z79.899 Other long term (current) drug therapy (principal)

== ENCOUNTER 2017-09-12 12:37 | Emergency (ER) | payer MEDICAID ==
[~2017-09-12] VITALS: Ht 142.2 cm; Wt 56.8 kg
[2017-09-12 12:37] VITALS: BP 128/63
[2017-09-12] MEDS ORDERED: [UNRECOGNIZED DRUG - CODE] TOP (13:16)
[2017-09-12] MEDS ORDERED: ZYPR10TA PO (13:16)
[2017-09-12] MEDS ORDERED: RISP2TAB32 PO (15:11)
== END 2017-09-12 15:37 | disposition home or self-care (01) ==
LOC: M ED 12:37
DX: F29 Unspecified psychosis not due to a substance or known physiological condition (principal); Z91.5 Personal history of self-harm; F70 Mild intellectual disabilities; Z79.899 Other long term (current) drug therapy; Z88.8 Allergy status to other drugs, medicaments and biological substances; Z88.6 Allergy status to analgesic agent

== ENCOUNTER → 2018-01-26 | Outpatient (CLI) | payer MEDICAID ==
[2018-01-26 16:53] LABS: BASO % 0.4 % (0.0-1.0); EOS % 0.4 % (0.0-3.0); HEMATOCRIT 42.4 % (42.0-52.0); IMMATURE GRANULOCYTE % 0.3 % (0-3.0); MONO # 1.3 10^3/uL (0.0-0.8); MONO % 13.9 % (0.0-5.0); NEUTROPHILS # 6.9 10^3/uL (1.8-7.7); PLATELET COUNT, AUTOMATED 195 10^3/uL (150-450); RED BLOOD COUNT 4.66 10^6/uL (4.30-6.10); RED CELL DISTRIBUTION WIDTH 12.3 % (11.5-14.5); WHITE BLOOD COUNT 9.4 10^3/uL (4.0-10.0)
[2018-01-26 17:01] LABS: DIFF SLIDE NUMBER 276
[2018-01-26 17:10] LABS: ALBUMIN 3.7 GM/DL (3.2-5.2); ALBUMIN/GLOBULIN RATIO 1.06 (1.00-1.93); ALKALINE PHOSPHATASE 102 U/L (45-117); ALT/SGPT 24 U/L (12-78); ANION GAP 6 MEQ/L (8-16); AST/SGOT 20 U/L (7-37); BILIRUBIN,TOTAL 0.4 MG/DL (0.2-1.0); BLOOD UREA NITROGEN 14 MG/DL (7-18); CALCIUM LEVEL 8.8 MG/DL (8.5-10.1); CARBON DIOXIDE LEVEL 31 MEQ/L (21-32); CHLORIDE LEVEL 103 MEQ/L (98-107); CREATININE FOR GFR 0.64 MG/DL (0.70-1.30); GLOMERULAR FILTRATION RATE > 60.0 (>60); GLUCOSE, FASTING 110 MG/DL (70-100); POTASSIUM SERUM 4.1 MEQ/L (3.5-5.1); SODIUM LEVEL 140 MEQ/L (136-145); TOTAL PROTEIN 7.2 GM/DL (6.4-8.2)
== END ==
LOC: M LRY 13:45
DX: F33.1 Major depressive disorder, recurrent, moderate (principal); E78.2 Mixed hyperlipidemia
CPT/HCPCS: 80053

== ENCOUNTER → 2018-03-10 | Outpatient (CLI) | payer MEDICAID ==
[2018-03-10 09:21] LABS: AST/SGOT 21 U/L (7-37)
[2018-03-10 09:21] LABS: ALT/SGPT 68 U/L (12-78); GAMMA GLUTAMYLTRANSPEPTIDASE 83 U/L (15-85)
== END ==
LOC: M WUC 08:07
DX: R74.0 Nonspecific elevation of levels of transaminase and lactic acid dehydrogenase [LDH] (principal)
CPT/HCPCS: 84460

== ENCOUNTER → 2018-11-27 | Outpatient (CLI) | payer MEDICAID ==
[~2018-11-27] MED LIST changes: -CLON0.5T PO; +CLON0.5T8 PO; -DEPA125C PO; +DEPA1CAP PO; +MILK120011 PO; -MILKSUS PO; -SALI0.6523; +SALI0.6528; +ZYPR10TA PO; +[UNRECOGNIZED DRUG - CODE] TOP
[2018-11-27 18:41] LABS: EOS # 0.1 10^3/uL (0.0-0.50); EOS % 1.9 % (0.0-3.0); HEMATOCRIT 45.1 % (42.0-52.0); HEMOGLOBIN 14.6 g/dl (13.5-17.5); LYMPH # 1.1 10^3/uL (1.5-4.5); LYMPH % 35.2 % (24.0-44.0); MEAN CORPUSCULAR HEMOGLOBIN 30.9 pg (27.0-33.0); MEAN CORPUSCULAR HGB CONC 32.4 g/dl (32.0-36.5); MEAN CORPUSCULAR VOLUME 95.6 fl (80.0-96.0); MONO # 0.5 10^3/uL (0.0-0.8); MONO % 15.2 % (0.0-5.0); NEUTROPHILS # 1.4 10^3/uL (1.8-7.7); NEUTROPHILS % 46.1 % (36.0-66.0); PLATELET COUNT, AUTOMATED 192 10^3/uL (150-450); RED BLOOD COUNT 4.72 10^6/uL (4.30-6.10); WHITE BLOOD COUNT 3.1 10^3/uL (4.0-10.0)
[2018-11-27 18:53] LABS: ALBUMIN 3.5 GM/DL (3.2-5.2); ALT/SGPT 40 U/L (12-78); BILIRUBIN,TOTAL 0.4 MG/DL (0.2-1.0); BLOOD UREA NITROGEN 12 MG/DL (7-18); CALCIUM LEVEL 8.2 MG/DL (8.5-10.1); CARBON DIOXIDE LEVEL 30 MEQ/L (21-32); CHLORIDE LEVEL 105 MEQ/L (98-107); CHOLESTEROL LEVEL 114 MG/DL (<200); CHOLESTEROL RISK RATIO 3.677 (<5); CREATININE FOR GFR 0.58 MG/DL (0.70-1.30); GLOMERULAR FILTRATION RATE > 60.0 (>60); GLUCOSE, FASTING 69 MG/DL (70-100); HDL CHOLESTEROL 31 MG/DL (>40); LDL CHOLESTEROL 63 MG/DL (<100); NON-HDL-C 83 MG/DL; POTASSIUM SERUM 4.4 MEQ/L (3.5-5.1); SODIUM LEVEL 142 MEQ/L (136-145); TOTAL PROTEIN 6.6 GM/DL (6.4-8.2); TRIGLYCERIDES LEVEL 102 MG/DL (<150); VALPROIC ACID (DEPAKOTE) 55.4 UG/ML (50.0-100.0)
[2018-11-27 19:00] LABS: HEMOGLOBIN A1c 4.9 %
[2018-11-28 10:53] LABS: PROLACTIN 32.5 NG/ML (2.1-17.7)
== END ==
LOC: M WUC 08:06
PROVIDERS: ATTEND Physician Assistant
DX: F72 Severe intellectual disabilities (principal)

== ENCOUNTER 2019-08-20 12:26 | Emergency (ER) | payer MEDICAID ==
[~2019-08-20] VITALS: Ht 165.1 cm; Wt 59.0 kg
[~2019-08-20 12:26] MED LIST changes: -ARTI99.0 OP; +ARTIDRO2 OP; +CLON0.5T2 PO; -CLON0.5T8 PO; +LAMO100T80 PO; -LAMO10TA PO; +TRIA0.1C60 TOP; -TRIA1CR TOP; -TRIP1OIN4 TOP; +TRIPOIN9 TOP
[2019-08-20] MEDS ORDERED: MIRA3350 PO (12:49)
[2019-08-20] MEDS ORDERED: DEBR6.5S4 OTIC (12:49)
[2019-08-20] MEDS ORDERED: TRIL1TAB PO (12:49)
[2019-08-20] MEDS ORDERED: LORazepam 2 MG TAB PO STA (13:27)
[2019-08-20] MEDS ORDERED: LORazepam 1 MG TAB PO ONE (13:30)
[2019-08-20] MEDS ORDERED: ACETAMINOPHEN 325 MG TAB PO ONE (13:45)
[2019-08-20] MEDS ORDERED: MIDAZOLAM INJ 5 MG/ML VIAL (J2250) ONE (14:30)
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
[2019-08-20 15:51] VITALS: BP 120/70
== END 2019-08-20 15:57 | disposition home or self-care (01) ==
LOC: M ED 12:26
DX: S01.01XA Laceration without foreign body of scalp, initial encounter (principal); W19.XXXA Unspecified fall, initial encounter; Y92.513 Shop (commercial) as the place of occurrence of the external cause; Y93.9 Activity, unspecified; Y99.9 Unspecified external cause status; F84.0 Autistic disorder; Z88.8 Allergy status to other drugs, medicaments and biological substances; Z91.81 History of falling

== ENCOUNTER → 2019-09-30 | Outpatient (CLI) | payer MEDICAID ==
[~2019-09-30] MED LIST changes: +DEBR6.5S4 OTIC; +MIRA3350 PO; +TRIL1TAB PO
[2019-09-30 11:40] LABS: BASO # 0.1 10^3/uL (0.0-0.2); BASO % 1.3 % (0.0-1.0); EOS # 0.2 10^3/uL (0.0-0.5); EOS % 4.9 % (0.0-3.0); HEMATOCRIT 44.9 % (42.0-52.0); HEMOGLOBIN 15.3 g/dl (13.5-17.5); LYMPH % 26.9 % (24.0-44.0); MEAN CORPUSCULAR HEMOGLOBIN 31.8 pg (27.0-33.0); MEAN CORPUSCULAR HGB CONC 34.1 g/dl (32.0-36.5); MEAN CORPUSCULAR VOLUME 93.3 fl (80.0-96.0); MONO # 0.5 10^3/uL (0.0-0.8); MONO % 12.9 % (0.0-5.0); NEUTROPHILS # 2.1 10^3/uL (1.5-8.5); NEUTROPHILS % 53.5 % (36.0-66.0); PLATELET COUNT, AUTOMATED 196 10^3/uL (150-450); RED BLOOD COUNT 4.81 10^6/uL (4.30-6.10); WHITE BLOOD COUNT 3.9 10^3/uL (4.0-10.0)
[2019-09-30 11:58] LABS: ALBUMIN 3.9 GM/DL (3.2-5.2); ALT/SGPT 27 U/L (12-78); BILIRUBIN,TOTAL 0.6 MG/DL (0.2-1.0); BLOOD UREA NITROGEN 14 MG/DL (7-18); CALCIUM LEVEL 8.9 MG/DL (8.5-10.1); CARBON DIOXIDE LEVEL 31 MEQ/L (21-32); CHLORIDE LEVEL 104 MEQ/L (98-107); CHOLESTEROL LEVEL 133 MG/DL (<200); CREATININE FOR GFR 0.64 MG/DL (0.70-1.30); GLOMERULAR FILTRATION RATE > 60.0 (>60); GLUCOSE, FASTING 78 MG/DL (70-100); HDL CHOLESTEROL 48 MG/DL (>40); LDL CHOLESTEROL 70 MG/DL (<100); NON-HDL-C 85 MG/DL; POTASSIUM SERUM 4.4 MEQ/L (3.5-5.1); SODIUM LEVEL 140 MEQ/L (136-145); TRIGLYCERIDES LEVEL 76 MG/DL (<150); VALPROIC ACID (DEPAKOTE) 58.1 UG/ML (50.0-100.0)
[2019-10-02 08:52] LABS: PROLACTIN 27.6 NG/ML (2.1-17.7)
== END ==
LOC: M WUC 08:24
PROVIDERS: ATTEND Physician Assistant
DX: F72 Severe intellectual disabilities (principal)

== ENCOUNTER 2019-12-13 18:11 | Emergency (ER) | payer MEDICAID ==
[~2019-12-13] VITALS: Ht 165.1 cm; Wt 59.1 kg
[~2019-12-13 18:11] MED LIST changes: -ARTIDRO2 OP; +POLYOPD OP
[2019-12-13] MEDS ORDERED: LIDOCAINE 2% MDV 20 ML VIAL SC ONE ×2 (18:45→19:45)
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
[2019-12-13] MEDS ORDERED: MIDAZOLAM INJ 5 MG/ML VIAL (J2250) ONE (19:45)
[2019-12-13 20:45] VITALS: BP 119/77
== END 2019-12-13 21:13 | disposition home or self-care (01) ==
LOC: M ED 18:11
DX: S01.81XA Laceration without foreign body of other part of head, initial encounter (principal); H74.8X2 Other specified disorders of left middle ear and mastoid; W01.0XXA Fall on same level from slipping, tripping and stumbling without subsequent striking against object, initial encounter; Y92.099 Unspecified place in other non-institutional residence as the place of occurrence of the external cause; F84.0 Autistic disorder; Z88.6 Allergy status to analgesic agent; Z88.8 Allergy status to other drugs, medicaments and biological substances; Z79.899 Other long term (current) drug therapy
CPT/HCPCS: 12011; 70450; 99284; J2250

== ENCOUNTER → 2020-05-14 | Outpatient (REF) | payer MEDICAID ==
[2020-07-02 10:46] LABS: BASO # 0.1 10^3/uL (0.0-0.2); BASO % 1.3 % (0.0-1.0); EOS # 0.3 10^3/uL (0.0-0.5); EOS % 5.9 % (0.0-3.0); HEMATOCRIT 43.6 % (42.0-52.0); HEMOGLOBIN 14.8 g/dl (13.5-17.5); LYMPH # 1.1 10^3/uL (1.5-5.0); MEAN CORPUSCULAR HEMOGLOBIN 31.9 pg (27.0-33.0); MEAN CORPUSCULAR HGB CONC 33.9 g/dl (32.0-36.5); MONO # 0.6 10^3/uL (0.0-0.8); MONO % 12.3 % (0.0-5.0); NEUTROPHILS # 2.7 10^3/uL (1.5-8.5); NEUTROPHILS % 56.7 % (36.0-66.0); PLATELET COUNT, AUTOMATED 186 10^3/uL (150-450); RED BLOOD COUNT 4.64 10^6/uL (4.30-6.10); WHITE BLOOD COUNT 4.7 10^3/uL (4.0-10.0)
[2020-08-04 08:37] LABS: ALBUMIN 3.9 GM/DL (3.2-5.2); ALT/SGPT 27 U/L (12-78); BILIRUBIN,TOTAL 0.5 MG/DL (0.2-1.0); BLOOD UREA NITROGEN 14 MG/DL (7-18); CARBON DIOXIDE LEVEL 31 MEQ/L (21-32); CHLORIDE LEVEL 105 MEQ/L (98-107); CHOLESTEROL LEVEL 146 MG/DL (<200); CHOLESTEROL RISK RATIO 3.106 (<5); CREATININE FOR GFR 0.56 MG/DL (0.70-1.30); GLOMERULAR FILTRATION RATE > 60.0 (>60); GLUCOSE, FASTING 76 MG/DL (70-100); HDL CHOLESTEROL 47 MG/DL (>40); LDL CHOLESTEROL 80 MG/DL (<100); NON-HDL-C 99 MG/DL; POTASSIUM SERUM 4.2 MEQ/L (3.5-5.1); SODIUM LEVEL 141 MEQ/L (136-145); TOTAL PROTEIN 7.1 GM/DL (6.4-8.2); TRIGLYCERIDES LEVEL 94 MG/DL (<150)
== END ==
LOC: M WUC 12:42
PROVIDERS: ATTEND Physician Assistant
DX: Z00.01 Encounter for general adult medical examination with abnormal findings (principal); E78.2 Mixed hyperlipidemia

== ENCOUNTER → 2020-11-05 | Outpatient (REF) | payer MEDICAID ==
[2020-11-05 10:13] LABS: BASO # 0.1 10^3/uL (0.0-0.2); EOS # 0.2 10^3/uL (0.0-0.5); EOS % 3.6 % (0.0-3.0); HEMATOCRIT 45.5 % (42.0-52.0); LYMPH % 19.9 % (24.0-44.0); MEAN CORPUSCULAR HEMOGLOBIN 30.2 pg (27.0-33.0); MEAN CORPUSCULAR VOLUME 91.5 fl (80.0-96.0); MONO # 0.6 10^3/uL (0.0-0.8); MONO % 12.4 % (0.0-5.0); NEUTROPHILS # 3.1 10^3/uL (1.5-8.5); NEUTROPHILS % 62.3 % (36.0-66.0); PLATELET COUNT, AUTOMATED 220 10^3/uL (150-450); RED BLOOD COUNT 4.97 10^6/uL (4.30-6.10)
[2020-11-05 10:43] LABS: ALBUMIN 4.1 GM/DL (3.2-5.2); ALT/SGPT 28 U/L (12-78); BILIRUBIN,TOTAL 0.3 MG/DL (0.2-1.0); BLOOD UREA NITROGEN 15 MG/DL (7-18); CALCIUM LEVEL 9.5 MG/DL (8.5-10.1); CARBON DIOXIDE LEVEL 31 MEQ/L (21-32); CHLORIDE LEVEL 101 MEQ/L (98-107); CHOLESTEROL LEVEL 178 MG/DL (<200); CHOLESTEROL RISK RATIO 4.238 (<5); CREATININE FOR GFR 0.61 MG/DL (0.70-1.30); GLOMERULAR FILTRATION RATE > 60.0 (>60); GLUCOSE, FASTING 79 MG/DL (70-100); HDL CHOLESTEROL 42 MG/DL (>40); LDL CHOLESTEROL 107 MG/DL (<100); NON-HDL-C 136 MG/DL; POTASSIUM SERUM 4.3 MEQ/L (3.5-5.1); SODIUM LEVEL 140 MEQ/L (136-145); TOTAL PROTEIN 7.8 GM/DL (6.4-8.2); TRIGLYCERIDES LEVEL 143 MG/DL (<150); VALPROIC ACID (DEPAKOTE) 60.5 UG/ML (50.0-100.0)
[2020-11-05 10:47] LABS: PROLACTIN 32.4 NG/ML (2.1-17.7)
[2020-11-05 11:23] LABS: HEMOGLOBIN A1c 4.9 %
== END ==
LOC: M WUC 08:13 → EDSTATUS 11-11 12:15
PROVIDERS: ATTEND Physician Assistant
DX: Z79.899 Other long term (current) drug therapy (principal)

== ENCOUNTER → 2021-02-05 | Outpatient (REF) | payer MEDICAID ==
[2021-02-05 10:16] LABS: BASO # 0.1 10^3/uL (0.0-0.2); BASO % 1.2 % (0.0-1.0); EOS # 0.4 10^3/uL (0.0-0.5); EOS % 7.4 % (0.0-3.0); HEMATOCRIT 46.7 % (42.0-52.0); HEMOGLOBIN 15.4 g/dl (13.5-17.5); LYMPH # 1.1 10^3/uL (1.5-5.0); MEAN CORPUSCULAR HEMOGLOBIN 30.8 pg (27.0-33.0); MEAN CORPUSCULAR VOLUME 93.4 fl (80.0-96.0); MONO # 0.6 10^3/uL (0.0-0.8); MONO % 11.3 % (2.0-8.0); NEUTROPHILS # 2.8 10^3/uL (1.5-8.5); NEUTROPHILS % 56.5 % (36.0-66.0); PLATELET COUNT, AUTOMATED 235 10^3/uL (150-450); WHITE BLOOD COUNT 4.9 10^3/uL (4.0-10.0)
[2021-02-05 10:36] LABS: ALBUMIN 3.9 GM/DL (3.2-5.2); ALT/SGPT 27 U/L (12-78); BILIRUBIN,TOTAL 0.4 MG/DL (0.2-1.0); BLOOD UREA NITROGEN 17 MG/DL (7-18); CALCIUM LEVEL 9.4 MG/DL (8.5-10.1); CARBON DIOXIDE LEVEL 34 MEQ/L (21-32); CHLORIDE LEVEL 106 MEQ/L (98-107); CHOLESTEROL LEVEL 155 MG/DL (<200); CHOLESTEROL RISK RATIO 3.297 (<5); CREATININE FOR GFR 0.63 MG/DL (0.70-1.30); GLOMERULAR FILTRATION RATE > 60.0 (>60); GLUCOSE, FASTING 83 MG/DL (70-100); HDL CHOLESTEROL 47 MG/DL (>40); LDL CHOLESTEROL 86 MG/DL (<100); NON-HDL-C 108 MG/DL; POTASSIUM SERUM 4.5 MEQ/L (3.5-5.1); SODIUM LEVEL 142 MEQ/L (136-145); TOTAL PROTEIN 7.2 GM/DL (6.4-8.2); TRIGLYCERIDES LEVEL 111 MG/DL (<150); VALPROIC ACID (DEPAKOTE) 58.4 UG/ML (50.0-100.0)
[2021-02-05 10:44] LABS: HEMOGLOBIN A1c 4.8 %
[2021-02-05 13:20] LABS: PROLACTIN 30.2 NG/ML (2.1-17.7)
== END ==
LOC: M WUC 08:05 → EDSTATUS 02-10 10:06
PROVIDERS: ATTEND Physician Assistant
DX: Z79.899 Other long term (current) drug therapy (principal)

== ENCOUNTER → 2022-04-10 | Outpatient (CLI) | payer MEDICAID ==
[2022-04-10 09:39] LABS: BASO # 0.1 10^3/uL (0.0-0.2); BASO % 1.1 % (0.0-1.0); EOS # 0.1 10^3/uL (0.0-0.5); EOS % 1.7 % (0.0-3.0); HEMATOCRIT 47.8 % (42.0-52.0); HEMOGLOBIN 15.6 g/dl (13.5-17.5); LYMPH # 1.2 10^3/uL (1.5-5.0); LYMPH % 26.4 % (24.0-44.0); MEAN CORPUSCULAR HEMOGLOBIN 30.4 pg (27.0-33.0); MEAN CORPUSCULAR HGB CONC 32.6 g/dl (32.0-36.5); MEAN CORPUSCULAR VOLUME 93.2 fl (80.0-96.0); MONO # 0.6 10^3/uL (0.0-0.8); MONO % 12.4 % (2.0-8.0); NEUTROPHILS # 2.6 10^3/uL (1.5-8.5); NEUTROPHILS % 57.1 % (36.0-66.0); PLATELET COUNT, AUTOMATED 231 10^3/uL (150-450); RED BLOOD COUNT 5.13 10^6/uL (4.30-6.10); WHITE BLOOD COUNT 4.6 10^3/uL (4.0-10.0)
[2022-04-10 10:28] LABS: ALBUMIN 3.9 GM/DL (3.2-5.2); ALT/SGPT 27 U/L (12-78); BILIRUBIN,TOTAL 0.4 MG/DL (0.2-1.0); BLOOD UREA NITROGEN 14 MG/DL (7-18); CALCIUM LEVEL 9.7 MG/DL (8.5-10.1); CARBON DIOXIDE LEVEL 31 MEQ/L (21-32); CHLORIDE LEVEL 103 MEQ/L (98-107); CHOLESTEROL LEVEL 205 MG/DL (<200); CREATININE FOR GFR 0.64 MG/DL (0.70-1.30); GLOMERULAR FILTRATION RATE > 60.0 (>60); GLUCOSE, FASTING 77 MG/DL (70-100); HDL CHOLESTEROL 42 MG/DL (>40); LDL CHOLESTEROL 119 MG/DL (<100); NON-HDL-C 163 MG/DL; POTASSIUM SERUM 4.5 MEQ/L (3.5-5.1); SODIUM LEVEL 143 MEQ/L (136-145); TOTAL PROTEIN 7.4 GM/DL (6.4-8.2); TRIGLYCERIDES LEVEL 219 MG/DL (<150); VALPROIC ACID (DEPAKOTE) 59.7 UG/ML (50.0-100.0)
[2022-04-10 10:49] LABS: PROLACTIN 25.7 NG/ML (2.1-17.7)
== END ==
LOC: M WUC 08:06
PROVIDERS: ATTEND Physician Assistant
DX: Z51.81 Encounter for therapeutic drug level monitoring (principal); Z79.899 Other long term (current) drug therapy

== ENCOUNTER → 2024-10-16 | Outpatient (CLI) | payer MEDICAID ==
[~2024-10-16] MED LIST changes: +ARTIDRO4 OP; -ATRO1OPD OU; +ATRO2DRO4 OU; -POLYOPD OP
[2024-10-16 13:29] LABS: BASO % 0.5 % (0.0-1.0); EOS % 0.7 % (0.0-3.0); HEMATOCRIT 42.8 % (42.0-52.0); HEMOGLOBIN 14.3 g/dl (13.5-17.5); LYMPH % 17.5 % (24.0-44.0); MEAN CORPUSCULAR HEMOGLOBIN 31.5 pg (27.0-33.0); MEAN CORPUSCULAR HGB CONC 33.4 g/dl (32.0-36.5); MEAN CORPUSCULAR VOLUME 94.3 fl (80.0-96.0); MONO # 0.6 10^3/uL (0.0-0.8); MONO % 11.3 % (2.0-8.0); NEUTROPHILS # 3.8 10^3/uL (1.5-8.5); NEUTROPHILS % 69.6 % (36.0-66.0); PLATELET COUNT, AUTOMATED 190 10^3/uL (150-450); RED BLOOD COUNT 4.54 10^6/uL (4.30-6.10); WHITE BLOOD COUNT 5.5 10^3/uL (4.0-10.0)
[2024-10-16 13:54] LABS: PROLACTIN 30.77 NG/ML (2.1-17.7)
[2024-10-16 13:56] LABS: VALPROIC ACID (DEPAKOTE) 69.5 UG/ML (50.0-100.0)
[2024-10-16 13:57] LABS: ALBUMIN 3.9 G/DL (3.2-5.2); ALKALINE PHOSPHATASE 92 U/L (40-129); ALT/SGPT 33 U/L (7.0-40); AST/SGOT 23 U/L (<34); BILIRUBIN,TOTAL 0.4 MG/DL (0.3-1.2); BLOOD UREA NITROGEN 21 MG/DL (9-23); CALCIUM LEVEL 9.2 MG/DL (8.5-10.1); CARBON DIOXIDE LEVEL 30 MMOL/L (20-31); CHLORIDE LEVEL 107 MMOL/L (98-107); CHOLESTEROL LEVEL 136 MG/DL (<200); CHOLESTEROL RISK RATIO 2.87 (<5); CREATININE FOR GFR 0.66 MG/DL (0.70-1.30); GLOMERULAR FILTRATION RATE > 60.0 (>60); GLUCOSE, FASTING 82 MG/DL (60-100); HDL CHOLESTEROL 47.3 MG/DL (>40); LDL CHOLESTEROL 45.9 MG/DL (<100); NON-HDL-C 88.7 MG/DL; POTASSIUM SERUM 4.3 MMOL/L (3.5-5.1); SODIUM LEVEL 146 MMOL/L (136-145); TOTAL PROTEIN 6.8 G/DL (5.7-8.2); TRIGLYCERIDES LEVEL 214 MG/DL (<150)
[2024-10-16 14:00] LABS: HEMOGLOBIN A1c 4.8 % (4.0-6.0)
== END ==
LOC: M WUC 09:33
PROVIDERS: ATTEND Physician Assistant
DX: Z79.899 Other long term (current) drug therapy (principal)

== ENCOUNTER → 2024-10-16 | Outpatient (CLI) | payer MEDICAID ==
[2024-10-16 13:31] LABS: BASO % 0.6 % (0.0-1.0); EOS # 0.1 10^3/uL (0.0-0.5); EOS % 0.9 % (0.0-3.0); HEMATOCRIT 41.6 % (42.0-52.0); HEMOGLOBIN 14.3 g/dl (13.5-17.5); LYMPH # 0.9 10^3/uL (1.5-5.0); LYMPH % 17.1 % (24.0-44.0); MEAN CORPUSCULAR HEMOGLOBIN 32.2 pg (27.0-33.0); MEAN CORPUSCULAR HGB CONC 34.4 g/dl (32.0-36.5); MEAN CORPUSCULAR VOLUME 93.7 fl (80.0-96.0); MONO # 0.6 10^3/uL (0.0-0.8); MONO % 10.8 % (2.0-8.0); NEUTROPHILS # 3.8 10^3/uL (1.5-8.5); NEUTROPHILS % 70.4 % (36.0-66.0); PLATELET COUNT, AUTOMATED 179 10^3/uL (150-450); RED BLOOD COUNT 4.44 10^6/uL (4.30-6.10)
[2024-10-16 13:54] LABS: ALBUMIN 3.8 G/DL (3.2-5.2); ALKALINE PHOSPHATASE 92 U/L (40-129); ALT/SGPT 34 U/L (7.0-40); AST/SGOT 23 U/L (<34); BILIRUBIN,TOTAL 0.4 MG/DL (0.3-1.2); BLOOD UREA NITROGEN 21 MG/DL (9-23); CALCIUM LEVEL 9.2 MG/DL (8.5-10.1); CARBON DIOXIDE LEVEL 28 MMOL/L (20-31); CHLORIDE LEVEL 108 MMOL/L (98-107); CHOLESTEROL LEVEL 135 MG/DL (<200); CREATININE FOR GFR 0.61 MG/DL (0.70-1.30); GLOMERULAR FILTRATION RATE > 60.0 (>60); GLUCOSE, FASTING 89 MG/DL (60-100); HDL CHOLESTEROL 46.5 MG/DL (>40); LDL CHOLESTEROL 46.3 MG/DL (<100); NON-HDL-C 88.5 MG/DL; POTASSIUM SERUM 4.3 MMOL/L (3.5-5.1); SODIUM LEVEL 146 MMOL/L (136-145); TOTAL PROTEIN 6.7 G/DL (5.7-8.2); TRIGLYCERIDES LEVEL 211 MG/DL (<150)
[2024-10-17 07:21] LABS: WHITE BLOOD COUNT 5.4 10^3/uL (4.0-10.0)
== END ==
LOC: M WUC 09:35
PROVIDERS: ATTEND Physician Assistant
DX: Z00.01 Encounter for general adult medical examination with abnormal findings (principal); Q86.0 Fetal alcohol syndrome (dysmorphic); E78.5 Hyperlipidemia, unspecified